=== PATIENT | male | born 1980 | race Caucasian/White ===

== ENCOUNTER 2019-02-28 11:05 | Emergency (ER) | payer SELFPAY ==
[2019-02-28 11:57] VITALS: BP 151/102; PULSE 98
[2019-02-28] MEDS ORDERED: Lidocaine 2% Viscous Solution 15 ML Cup PO ONE (11:59)
[2019-02-28] MEDS ORDERED: Benzocaine 20% Topical Spray UD MUCMEM ONE (11:59)
--- NOTE | 2019-02-28 12:06 | EDM.PDOC ---
ED HPI GENERAL MEDICAL PROBLEM - General Chief Complaint: General Stated Complaint: ABCESSED TOOTHE Time Seen by Provider: 02/28/19 12:03 Source of Information: Reports: Patient History Limitations: Reports: No Limitations - History of Present Illness INITIAL COMMENTS - FREE TEXT/NARRATIVE: HISTORY AND PHYSICAL: History of present illness: Patient is a 38-year-old male presents to the ED today with concern of dental abscess on his bottom right. Patient states he's had multiple dental abscesses in the past and he has bad teeth. Patient states he has an appointment in a week with a dentist. Patient states he's been taking [id number] ibuprofen without relief of symptoms. Patient denies any other symptoms or concerns. Patient denies fever, chills, chest pain, shortness of breath, or cough. Denies headache, neck stiff ness, change in vision, syncope, or near syncope. Denies nausea, vomiting, abdominal pain, diarrhea, constipation, or dysuria. Has not noted any blood in urine or stool. Patient has been eating and drinking appropriately. Review of systems: As per history of present illness and below otherwise all systems reviewed and negative. Past medical history: As per history of present illness and as reviewed below otherwise noncontributory. Surgical history: As per history of present illness and as reviewed below otherwise noncontributory. Social history: See social history for further information Family history: As per history of present illness and as reviewed below otherwise noncontributory. Physical exam: General: Patient is alert, oriented, and in no acute distress. Patient sitting comfortably on exam table. HEENT: Atraumatic, normocephalic, pupils equal and reactive bilaterally, negative for conjunctival pallor or scleral icterus, mucous membranes moist, TMs normal bilaterally, throat clear, neck supple, nontender, trachea midline. No drooling or trismus noted. No meningeal signs. No hot potato voice noted. Generalized poor dentition. Tooth #30, 31, and 32 are severely eroded with surrounding edema of the gumline. Adjacent to this the mandible has some moderate swelling with mild pain with palpation. Lungs: Clear to auscultation, breath sounds equal bilaterally, chest nontender. Heart: S1S2, regular rate and rhythm without overt murmur Abdomen: Soft, nondistended, nontender. Negative for masses or hepatosplenomegaly. Negative for costovertebral tenderness. Pelvis: Stable nontender. Genitourinary: Deferred. Rectal: Deferred. Skin: Intact, warm, dry. No lesions or rashes noted. Extremities: Atraumatic, negative for cords or calf pain. Neurovascular unremarkable. Neuro: Awake, alert, oriented. Cranial nerves II through XII unremarkable. Cerebellum unremarkable. Motor and sensory unremarkable throughout. Exam nonfocal. Notes: Discussed the importance for follow-up with the dentist. Voices understanding and is agreeable to plan of care. Denies any further questions or concerns at this time. Diagnostics: None Therapeutics: Dental Balls Prescription: Augmentin Impression: Dental abscess Plan: 1. Please take medication as prescribed. 2. Tylenol and/or ibuprofen as directed and as needed for pain management. 3. "Tooth Balls" have been given to you; apply along the gumline every 2-3 hours as needed. Do not swallow these; external use only. 4. Follow-up with a dentist for definitive care. Return to the ED as needed and as discussed. Definitive disposition and diagnosis as appropriate pending reevaluation and review of above. Right Oral/Mouth Pain Score (Numeric/FACES): 9 - Related Data Allergies Allergy/AdvReac Type Severity Reaction Status Date / Time No Known Allergies Allergy Verified 02/28/19 11:53 Home Meds: Home Meds Amoxicillin/Potassium Clav [Augmentin 875-125 Tablet] 1 each PO BID 7 Days #14 tablet 02/28/19 [Rx] Omeprazole Magnesium [Prilosec] 10 mg PO DAILY 02/28/19 [History] Past Medical History - Past Health History Medical/Surgical History: Denies Medical/Surgical History HEENT History: Reports: Other (See Below) Other HEENT History: several broken, missing teeth and carries. - Infectious Disease History Infectious Disease History: Reports: Chicken Pox - Past Surgical History HEENT Surgical History: Reports: Other (See Below) Social & Family History - Family History Family Medical History: Noncontributory - Tobacco Use Smoking Status *Q: Never Smoker Second Hand Smoke Exposure: No - Caffeine Use Caffeine Use: Reports: Coffee - Recreational Drug Use Recreational Drug Use: No ED ROS GENERAL - Review of Systems Review Of Systems: ROS reveals no pertinent complaints other than HPI. ED EXAM, GENERAL - Physical Exam Exam: See Below (See dictation) Course - Vital Signs Last Recorded V/S: Last Vital Signs Temp 37.7 C 02/28/19 11:54 Pulse 98 02/28/19 11:54 Resp 16 02/28/19 11:54 BP 151/102 H 02/28/19 11:54 Pulse Ox 99 02/28/19 11:54 - Orders/Labs/Meds Meds: Medications Discontinued Medications Generic Name Dose Route Start Last Admin Trade Name Anne PRN Reason Stop Dose Admin Benzocaine 2 each 02/28/19 11:59 Hurricaine One 20% MUCMEM 02/28/19 12:00 ONETIME ONE Lidocaine HCl 15 ml 02/28/19 11:59 Xylocaine 2% Viscous PO 02/28/19 12:00 ONETIME ONE Departure - Departure Time of Disposition: 12:04 Disposition: Home, Self-Care 01 Clinical Impression: Dental abscess - Discharge Information Prescriptions: Amoxicillin/Potassium Clav [Augmentin 875-125 Tablet] 1 each PO BID 7 Days #14 tablet Referrals: Lg Holden MD [Primary Care Provider] - Additional Instructions: The following information is given to patients seen in the emergency department who are being discharged to home. This information is to outline your options for follow-up care. We provide all patients seen in our emergency department with a follow-up referral. The need for follow-up, as well as the timing and circumstances, are variable depending upon the specifics of your emergency department visit. If you don't have a primary care physician on staff, we will provide you with a referral. We always advise you to contact your personal physician following an emergency department visit to inform them of the circumstance of the visit and for follow-up with them and/or the need for any referrals to a consulting specialist. The emergency department will also refer you to a specialist when appropriate. This referral assures that you have the opportunity for follow-up care with a specialist. All of these measure are taken in an effort to provide you with optimal care, which includes your follow-up. Under all circumstances we always encourage you to contact your private physician who remains a resource for coordinating your care. When calling for follow-up care, please make the office aware that this follow-up is from your recent emergency room visit. If for any reason you are refused follow-up, please contact the [facility] Emergency Department at and asked to speak to the emergency department charge nurse. [facility] [address] [place] [address] [facility] [address] [place] [id number] 1. Please take medication as prescribed. 2. Tylenol and/or ibuprofen as directed and as needed for pain management. 3. "Tooth Balls" have been given to you; apply along the gumline every 2-3 hours as needed. Do not swallow these; external use only. 4. Follow-up with a dentist for definitive care. Return to the ED as needed and as discussed.
== END 2019-02-28 12:23 | disposition home or self-care (01) ==
LOC: MW.ED 11:05
DX: K04.7 Periapical abscess without sinus (principal); Z79.899 Other long term (current) drug therapy
CPT/HCPCS: 99282; A9270